=== PATIENT | female | born 1990 | race Caucasian/White ===

== ENCOUNTER 2016-09-27 19:20 | Emergency (ER) | payer OTHER ==
--- NOTE | 2016-09-27 20:15 | ED CLINICAL REPORT ---
Clinical Report - Physicians/Mid Levels [facility] [address] [place] [address] 09/27/2016 19:21 [id number] Time Seen: 21:07 Sep 27 2016. Arrived- By private vehicle. Historian- patient. HISTORY OF PRESENT ILLNESS Chief Complaint: NECK PAIN. It is still present. No bladder dysfunction. Additional history - Patient reports history of Chiari malformation, and has had neck and back pain over the last 8 months, possibly worsening over the last 2 months. Reports. Seizures to her right upper extremity, which has now subsided. Denies any shortness of breath. Denies any weakness. Denies any current neck pain. Reports some thoracic pain, which is worsened with movement and activity. Patient has not followed up with her surgeon. REVIEW OF SYSTEMS No fever, chills, cough, difficulty breathing or chest pain. No diarrhea. All systems otherwise negative, except as recorded above. PAST HISTORY Problems: Chiari malformation type I. Hepatitis C carrier. Crush Injury. Contusion. Rheumatoid Arthritis. Rotator Cuff Injury. Bursitis. PTSD. PPD. Additional Surgeries: None. Medications: None. Allergies: No Known Drug Allergy. SOCIAL HISTORY No alcohol use or drug use. ADDITIONAL NOTES The nursing notes have been reviewed. PHYSICAL EXAM Vital Signs: 09/27/2016 20:02 BP: 123/70. HR: 104. RR: 16. O2 saturation: 100%. Temp: 99.3 F. Appearance: Alert. HEENT: Normal external inspection. Eyes: Pupils equal, round and reactive to light. Neck: Normal inspection. Neck nontender. CVS: Heart sounds normal. Respiratory: No respiratory distress. Breath sounds normal. Skin: Skin warm. Normal skin color. Neuro: Oriented X 3. Mood/affect normal. No motor deficit. No sensory deficit. PROGRESS AND PROCEDURES Course of Care: Patient with no upper extremity pain at this time, no signs of compression, no paresthesia, negative neuro exam. At this time patient to have close follow up with her neurosurgeon. Stable, does not require any advanced imaging or workup acutely in the emergency department. There are no risks for spinal epidural abscess or hematoma as patient is without any risk factors such as IVDA or evidence of active infection, no midline tenderness to percussion. Hence I do not feel emergent imaging with an MRI is indicated. However I did discuss with the patient that if these symptoms develop, or if the pain does not resolve an MRI may need to be done outpatient, or in the ED if symptoms worsen acutely or new onset of the above mentioned symptoms develop. Patient is stable. Symptoms better. Patient/family counseled. Disposition: Discharged. CLINICAL IMPRESSION Neck pain. Myofascial strain Back pain. INSTRUCTIONS Apply ice. (ice/ heat). Prescription Medications: Flexeril 10 mg: Take 1 orally every 8 hours as needed for muscle spasm. Dispense twenty (20). No refills. Substitution is permissible. OTC Medications: Take OTC medications according to label instructions. Available over the counter. Acetaminophen (available over the counter): take according to label instructions. Motrin (available over the counter): take according to label instructions. Follow-up: Follow up with a specialist in three days. (Electronically signed by Constance Garcia P.A.-C 09/27/2016 22:50)
--- NOTE | 2016-09-27 20:15 | ED CLINICAL REPORT ---
Clinical Report - Physicians/Mid Levels [facility] [address] [place] [address] 09/27/2016 19:21 [id number] Time Seen: 21:07 Sep 27 2016. Arrived- By private vehicle. Historian- patient. HISTORY OF PRESENT ILLNESS Chief Complaint: NECK PAIN. It is still present. No bladder dysfunction. Additional history - Patient reports history of Chiari malformation, and has had neck and back pain over the last 8 months, possibly worsening over the last 2 months. Reports. Seizures to her right upper extremity, which has now subsided. Denies any shortness of breath. Denies any weakness. Denies any current neck pain. Reports some thoracic pain, which is worsened with movement and activity. Patient has not followed up with her surgeon. REVIEW OF SYSTEMS No fever, chills, cough, difficulty breathing or chest pain. No diarrhea. All systems otherwise negative, except as recorded above. PAST HISTORY Problems: Chiari malformation type I. Hepatitis C carrier. Crush Injury. Contusion. Rheumatoid Arthritis. Rotator Cuff Injury. Bursitis. PTSD. PPD. Additional Surgeries: None. Medications: None. Allergies: No Known Drug Allergy. SOCIAL HISTORY No alcohol use or drug use. ADDITIONAL NOTES The nursing notes have been reviewed. PHYSICAL EXAM Vital Signs: 09/27/2016 20:02 BP: 123/70. HR: 104. RR: 16. O2 saturation: 100%. Temp: 99.3 F. Appearance: Alert. HEENT: Normal external inspection. Eyes: Pupils equal, round and reactive to light. Neck: Normal inspection. Neck nontender. CVS: Heart sounds normal. Respiratory: No respiratory distress. Breath sounds normal. Skin: Skin warm. Normal skin color. Neuro: Oriented X 3. Mood/affect normal. No motor deficit. No sensory deficit. PROGRESS AND PROCEDURES Course of Care: Patient with no upper extremity pain at this time, no signs of compression, no paresthesia, negative neuro exam. At this time patient to have close follow up with her neurosurgeon. Stable, does not require any advanced imaging or workup acutely in the emergency department. There are no risks for spinal epidural abscess or hematoma as patient is without any risk factors such as IVDA or evidence of active infection, no midline tenderness to percussion. Hence I do not feel emergent imaging with an MRI is indicated. However I did discuss with the patient that if these symptoms develop, or if the pain does not resolve an MRI may need to be done outpatient, or in the ED if symptoms worsen acutely or new onset of the above mentioned symptoms develop. Patient is stable. Symptoms better. Patient/family counseled. Disposition: Discharged. CLINICAL IMPRESSION Neck pain. Myofascial strain Back pain. INSTRUCTIONS Apply ice. (ice/ heat). Prescription Medications: Flexeril 10 mg: Take 1 orally every 8 hours as needed for muscle spasm. Dispense twenty (20). No refills. Substitution is permissible. OTC Medications: Take OTC medications according to label instructions. Available over the counter. Acetaminophen (available over the counter): take according to label instructions. Motrin (available over the counter): take according to label instructions. Follow-up: Follow up with a specialist in three days. (Electronically signed by Constance Garcia P.A.-C 09/27/2016 22:50)
--- NOTE | 2016-09-27 20:15 | ED NURSING NOTES ---
Clinical Report - Nurses [facility] [address] [place] [address] 09/27/2016 19:21 [id number] TRI[facility] Triage time 20:Sep 27 2016. Acuity: LEVEL 4. Chief Complaint: NECK PAIN. Alert. No acute distress. SEPSIS SCREEN: Sepsis Screen. Negative (no infection suspected/documented). TONJA COMA SCORE: [place] Coma Scale: 15- eyes open spontaneously (4); best verbal response- oriented x 4 (5); best motor response- obeys commands (6). --20:10 Maggie Clifton R.N. 20:02 09/27/16. BP: 123/70. HR: 104. RR: 16. O2 saturation: 100%. Temp: 99.3 F. Pain level now 4/10. --20:10 Maggie Clifton R.N. Weight: 50.8 kg stated. Height/Length: 66 inches Per Patient. BMI: 18.1. --20:06 Maggie Clifton R.N. Medications None. --20:03 Maggie Clifton R.N. Allergies No Known Drug Allergy. --20:03 Maggie Clifton R.N. History Arrived by private vehicle. Historian: patient. Accompanied by family. This is a recurrent problem. (6 months). Reports muscle aches. 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 PAST MEDICAL HX: Immunizations: up-to-date. Last normal menstrual period- Feb. Uses depo implants. SOCIAL HX: Current every day heavy tobacco smoker (cigarette)- less than 1 pack per day. No alcohol use or drug use. No infectious disease exposure. SELF HARM ASSESSMENT: A self harm assessment was performed. The patient answered "no" to the question "Do you have thoughts of harming or killing yourself?". FALL RISK ASSESSMENT: Fall risk assessment completed. No fall risk identified. NUTRITIONAL RISK ASSESSMENT: The nutritional risk assessment revealed no deficiencies. FUNCTIONAL ASSESSMENT: Functional assessment: no impairments noted. LEARNING NEEDS ASSESSMENT: The learning needs assessment revealed no barriers. ABUSE ASSESSMENT: Abuse assessment: The patient was asked "Do you feel safe in your home?". SKIN INTEGRITY ASSESSMENT: Skin integrity risk assessment completed. No skin integrity risk identified. --20:10 Maggie Clifton R.N. PROBLEMS: Chiari malformation type I. Hepatitis C carrier. Crush Injury. Rotator Cuff Injury. Rheumatoid Arthritis. Bursitis. PTSD. PPD. --20:06 Maggie Clifton R.N. Interventions ID band on patient. To room. --20:10 Maggie Clifton R.N. PHYSICAL ASSESSMENT GENERAL / NEURO / PSYCH: Alert. Oriented X 4. Appears in no acute distress. HEENT: Pupils equal, round and reactive to light. RESPIRATORY: Respirations not labored. CVS: Capillary refill less than 2 seconds. GI / : Abdomen nontender. SKIN: Skin is warm and dry. --20:11 Maggie Clifton R.N. NURSING PROGRESS NOTES Patient identifiers checked. Call light placed in reach. Patient placed in chair. --20:11 Maggie Clifton R.N. DISPOSITION / DISCHARGE Departure time: 20:35 Sep 27 2016. Condition at departure: unchanged. No learning barriers present. Discharge instructions provided and reviewed with the patient. Reviewed medication(s) side effects, precautions, dosing and course information. Prescription(s) given to the patient. Reviewed referral to a neurologist and primary care physician for followup. Patient verbalized understanding. Written instructions provided in Mongolian. The patient was discharged home and accompanied by spouse. She left the Emergency Department ambulatory and via private vehicle. Patient driving. FALL RISK ASSESSMENT: Fall risk assessment completed. No fall risk identified. --20:35 Maggie Clifton R.N. Locked/Released at 09/29/2016 7:57 by Dominique Matias R.N.
--- NOTE | 2016-09-27 20:15 | ED NURSING NOTES ---
Clinical Report - Nurses [facility] [address] [place] [address] 09/27/2016 19:21 [id number] TRI[facility] Triage time 20:Sep 27 2016. Acuity: LEVEL 4. Chief Complaint: NECK PAIN. Alert. No acute distress. SEPSIS SCREEN: Sepsis Screen. Negative (no infection suspected/documented). TONJA COMA SCORE: [place] Coma Scale: 15- eyes open spontaneously (4); best verbal response- oriented x 4 (5); best motor response- obeys commands (6). --20:10 Maggie Clifton R.N. 20:02 09/27/16. BP: 123/70. HR: 104. RR: 16. O2 saturation: 100%. Temp: 99.3 F. Pain level now 4/10. --20:10 Maggie Clifton R.N. Weight: 50.8 kg stated. Height/Length: 66 inches Per Patient. BMI: 18.1. --20:06 Maggie Clifton R.N. Medications None. --20:03 Maggie Clifton R.N. Allergies No Known Drug Allergy. --20:03 Maggie Clifton R.N. History Arrived by private vehicle. Historian: patient. Accompanied by family. This is a recurrent problem. (6 months). Reports muscle aches. 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 PAST MEDICAL HX: Immunizations: up-to-date. Last normal menstrual period- Feb. Uses depo implants. SOCIAL HX: Current every day heavy tobacco smoker (cigarette)- less than 1 pack per day. No alcohol use or drug use. No infectious disease exposure. SELF HARM ASSESSMENT: A self harm assessment was performed. The patient answered "no" to the question "Do you have thoughts of harming or killing yourself?". FALL RISK ASSESSMENT: Fall risk assessment completed. No fall risk identified. NUTRITIONAL RISK ASSESSMENT: The nutritional risk assessment revealed no deficiencies. FUNCTIONAL ASSESSMENT: Functional assessment: no impairments noted. LEARNING NEEDS ASSESSMENT: The learning needs assessment revealed no barriers. ABUSE ASSESSMENT: Abuse assessment: The patient was asked "Do you feel safe in your home?". SKIN INTEGRITY ASSESSMENT: Skin integrity risk assessment completed. No skin integrity risk identified. --20:10 Maggie Clifton R.N. PROBLEMS: Chiari malformation type I. Hepatitis C carrier. Crush Injury. Rotator Cuff Injury. Rheumatoid Arthritis. Bursitis. PTSD. PPD. --20:06 Maggie Clifton R.N. Interventions ID band on patient. To room. --20:10 Maggie Clifton R.N. PHYSICAL ASSESSMENT GENERAL / NEURO / PSYCH: Alert. Oriented X 4. Appears in no acute distress. HEENT: Pupils equal, round and reactive to light. RESPIRATORY: Respirations not labored. CVS: Capillary refill less than 2 seconds. GI / : Abdomen nontender. SKIN: Skin is warm and dry. --20:11 Maggie Clifton R.N. NURSING PROGRESS NOTES Patient identifiers checked. Call light placed in reach. Patient placed in chair. --20:11 Maggie Clifton R.N. DISPOSITION / DISCHARGE Departure time: 20:35 Sep 27 2016. Condition at departure: unchanged. No learning barriers present. Discharge instructions provided and reviewed with the patient. Reviewed medication(s) side effects, precautions, dosing and course information. Prescription(s) given to the patient. Reviewed referral to a neurologist and primary care physician for followup. Patient verbalized understanding. Written instructions provided in Setswana. The patient was discharged home and accompanied by spouse. She left the Emergency Department ambulatory and via private vehicle. Patient driving. FALL RISK ASSESSMENT: Fall risk assessment completed. No fall risk identified. --20:35 Maggie Clifton R.N. Locked/Released at 09/29/2016 7:57 by Dominique Matias R.N.
--- NOTE | 2016-09-29 07:57 | ED MED RECONCILIATION SUMMARY ---
Patient: AUBREY FRANZ Medication Reconciliation Report [facility] VisitID: [id number] [address] [place] [address] 26y, F Registration Date/Time: 09/27/2016 Weight: 50.8 kg Height/Length: 66 in. BMI: 18.1 ALLERGIES: No Known Drug Allergy The patient's Home Medications are listed below: NONE. The source(s) of the original Home Medication information: Not obtained. The following Medications were given to the patient in the Emergency Department: None. The following Medications were prescribed to the patient: Take OTC medications according to label instructions. Available over the counter. -- Constance Garcia, P.A.-C Acetaminophen (available over the counter): take according to label instructions. -- Constance Garcia, P.A.-C Motrin (available over the counter): take according to label instructions. -- Constance Garcia, P.A.-C Flexeril 10 mg: Take 1 orally every 8 hours as needed for muscle spasm. Dispense twenty (20). No refills. Substitution is permissible. -- Constance Garcia, P.A.-C
--- NOTE | 2016-09-29 07:57 | ED MAR SUMMARY ---
..... Medication Administration Record [facility] [address], [place] [id number] Patient: AUBREY FRANZ Visit ID: [id number] 26y, F Weight: 50.8 kg Height/Length: 66 in BMI: 18.1 ALLERGIES: No Known Drug Allergy
--- NOTE | 2016-09-29 07:57 | ED DISCHARGE INSTRUCTIONS ---
Patient: AUBREY FRANZ General Instructions [facility] VisitID: [id number] [place] [address] 26y, F Registration Date/Time: 09/27/2016 Neck pain. Myofascial strain Back pain. INSTRUCTIONS Apply ice. (ice/ heat). Prescription Medications: Flexeril 10 mg: Take 1 orally every 8 hours as needed for muscle spasm. Dispense twenty (20). No refills. Substitution is permissible. OTC Medications: Take OTC medications according to label instructions. Available over the counter. Acetaminophen (available over the counter): take according to label instructions. Motrin (available over the counter): take according to label instructions. Follow-up: Follow up with a specialist in three days. ADDITIONAL INFORMATION Muscle Strain,Extremity A MUSCLE STRAIN is a stretching and tearing of muscle fibers. This causes pain, especially with motion of that muscle. There may also be some swelling and bruising. Home Care: 1) Keep the injured area raised to reduce pain and swelling. This is especially important during the first 48 hours. 2) Make an ice pack (ice cubes in a plastic bag, wrapped in a towel) and apply for 20 minutes every 1-2 hours the first day. You should continue with ice packs 3-4 times a day for the second and third days. Unless otherwise instructed, on the fourth day you may begin hot soaks or hot packs (small towel soaked in hot water) 3-4 times a day while you gently exercise the involved area. 3) You may use acetaminophen (Tylenol) or ibuprofen (Motrin, Advil) to control pain, unless another medicine was prescribed. [ NOTE : If you have chronic liver or kidney disease or ever had a stomach ulcer or GI bleeding, talk with your doctor before using these medicines.] 4) For LEG STRAINS: If CRUTCHES have been recommended, do not bear full weight on the injured leg until you can do so without pain. You may return to sports when you are able to hop and run on the injured leg without pain. Follow Up with your doctor or this facility if you are not improving within the next five days. Get Prompt Medical Attention if any of the following occur: -- Fingers or toes become swollen, cold, blue, numb or tingly -- Pain or swelling increases You have been given the following additional information: Muscle Strain, Extremity (Electronically signed by Constance Garcia P.A.-C 09/27/2016 22:50)
--- NOTE | 2016-09-29 07:57 | ED MED RECONCILIATION SUMMARY ---
Patient: AUBREY FRANZ Medication Reconciliation Report [facility] VisitID: [id number] [address] [place] [address] 26y, F Registration Date/Time: 09/27/2016 Weight: 50.8 kg Height/Length: 66 in. BMI: 18.1 ALLERGIES: No Known Drug Allergy The patient's Home Medications are listed below: NONE. The source(s) of the original Home Medication information: Not obtained. The following Medications were given to the patient in the Emergency Department: None. The following Medications were prescribed to the patient: Take OTC medications according to label instructions. Available over the counter. -- Constance Garcia, P.A.-C Acetaminophen (available over the counter): take according to label instructions. -- Constance Garcia, P.A.-C Motrin (available over the counter): take according to label instructions. -- Constance Garcia, P.A.-C Flexeril 10 mg: Take 1 orally every 8 hours as needed for muscle spasm. Dispense twenty (20). No refills. Substitution is permissible. -- Constance Garcia, P.A.-C
--- NOTE | 2016-09-29 07:57 | ED MAR SUMMARY ---
..... Medication Administration Record [facility] [address] [place], [place] [id number] Patient: AUBREY FRANZ Visit ID: [id number] 26y, F Weight: 50.8 kg Height/Length: 66 in BMI: 18.1 ALLERGIES: No Known Drug Allergy
== END 2016-09-27 20:36 | disposition home or self-care (01) ==
LOC: ED SRH 19:20
DX: S16.1XXA Strain of muscle, fascia and tendon at neck level, initial encounter (principal); S39.012A Strain of muscle, fascia and tendon of lower back, initial encounter; X58.XXXA Exposure to other specified factors, initial encounter; Y93.9 Activity, unspecified; Y92.9 Unspecified place or not applicable; Y99.9 Unspecified external cause status; G93.5 Compression of brain; M06.9 Rheumatoid arthritis, unspecified; F17.210 Nicotine dependence, cigarettes, uncomplicated